=== PATIENT | female | born 1965 | race Caucasian/White ===

== ENCOUNTER → 2023-05-07 14:05 | Outpatient (CLI) | payer SELFPAY ==
[2023-05-11 09:22] LABS: QuantiFERON Mitogen Value >10.00 IU/mL (.); QuantiFERON Nil Value 0.07 IU/mL (.); QuantiFERON TB Gold Plus Negative (Negative); QuantiFERON TB1 Ag Value 0.08 IU/mL (.); QuantiFERON TB2 Ag Value 0.11 IU/mL (.)
== END ==
PROVIDERS: Referring Provider Dermatology; Visit Provider Dermatology
DX: L40.0 Psoriasis vulgaris (principal)
CPT/HCPCS: 36415; 86480

== ENCOUNTER → 2025-07-26 11:58 | Outpatient (CLI) | payer SELFPAY | PROVIDERS: Referring Provider Dermatology; Visit Provider Dermatology | DX: L40.0 Psoriasis vulgaris (principal); Z79.899 Other long term (current) drug therapy | CPT/HCPCS: 36415; 86480 ==